=== PATIENT | female | born 1990 | race Native Hawaiian/Other Pacific Islander ===

== ENCOUNTER 2019-03-06 15:53 | Inpatient (IN) ==
[2019-03-06] MEDS ORDERED: ONDANSETRON 4 MG/2 ML VIAL IVP ONE (16:00)
[2019-03-06] MEDS ORDERED: Sodium Chloride 0.9% 1,000 ML PRIMARY IV ONE ×3 (16:00→20:57)
[2019-03-06] MEDS ORDERED: cefTRIAXone Inj 2 GM in Sodium Chloride 0.9% 100 ML IV ONE (16:03)
[2019-03-06 16:24] LABS: BASOPHILS # (AUTO) 0.02 10*3/UL; BASOPHILS % (AUTO) 0.1 % (0-1); EOSINOPHILS # (AUTO) 0.01 10*3/UL; EOSINOPHILS % (AUTO) 0.1 % (0-8); Hematocrit [HCT] 37.1 % (37.0-47.0); Hemoglobin [HGB] 12.6 g/dL (12.0-16.0); LYMPHOCYTES # (AUTO) 0.86 10*3/uL; MEAN CORPUSCULAR VOLUME 83.4 FL (81-99); MEAN PLATELET VOLUME 9.7 FL (7.4-12.2); MONOCYTES # (AUTO) 1.31 10*3/UL (0.3-0.8); MONOCYTES % (AUTO) 8.5 % (5-15); NEUTROPHILS # (AUTO) 13.21 10*3/UL; NEUTROPHILS % (AUTO) 85.4 % (50-80); RED BLOOD COUNT 4.45 10^6/uL (4.20-5.40)
[2019-03-06 16:32] LABS: BLOOD UREA NITROGEN 12 mg/dL (7-22); SERUM ALBUMIN 4.2 g/dL (3.5-4.8)
[2019-03-06 16:37] LABS: PLATELET MORPHOLOGY COMMENT NORMAL MORPHOLOGY (NORM); RBC MORPHOLOGY COMMENT NORMAL MORPHOLOGY (NORM); WBC MORPHOLOGY COMMENT NORMAL MORPHOLOGY (NORM)
[2019-03-06] MEDS ORDERED: ACETAMINOPHEN 500 MG TABLET PO ONE (18:03)
[2019-03-06 18:30] LABS: BILIRUBIN,URINE NEGATIVE (NEG); CLARITY,URINE CLEAR (CLEAR); COLOR,URINE YELLOW (Y); GLUCOSE, URINE (UA) NEGATIVE (NEG); OCCULT BLOOD,URINE MODERATE (NEG); PH,URINE 5.5 (5.0-8.5); PROTEIN,URINE 30 mg/dl (NEG); UROBILINOGEN,URINE 0.2 EU/dL (0.2)
[2019-03-06 18:37] LABS: BACTERIA,URINE FEW; SQUAMOUS EPITHELIAL CELL,UR RARE; URINE SAMPLE TYPE CLEAN CATCH URINE; WBC,URINE 50-60
[2019-03-06] MEDS ORDERED: CALCIUM CARBONATE 500 MG (TUMS) CHEWABLE TABLET PO PRN (20:57)
[2019-03-06] MEDS ORDERED: ACETAMINOPHEN 325 MG TABLET PO PRN (20:57)
[2019-03-06] MEDS ORDERED: HYDROmorphone 2 MG/1 ML IVP PRN (20:57)
[2019-03-06] MEDS ORDERED: LIDOCAINE W/ SODIUM BICARB 0.5 ML SYR SUBD PRN (20:57)
[2019-03-06] MEDS ORDERED: ONDANSETRON 4 MG/2 ML VIAL IVP PRN (20:57)
[2019-03-06] MEDS ORDERED: HYDROcodone-APAP 5 MG -325 MG TABLET PO PRN (20:57)
[2019-03-06] MEDS: Lactated Ringers 1,000 ML PRIMARY IV SCH (23:32)
[2019-03-07 05:36] LABS: BASOPHILS # (AUTO) 0.02 10*3/UL; BASOPHILS % (AUTO) 0.1 % (0-1); EOSINOPHILS # (AUTO) 0.04 10*3/UL; EOSINOPHILS % (AUTO) 0.3 % (0-8); Hematocrit [HCT] 33.1 % (37.0-47.0); Hemoglobin [HGB] 10.8 g/dL (12.0-16.0); LYMPHOCYTES # (AUTO) 1.51 10*3/uL; MEAN CORPUSCULAR HGB CONC 32.6 g/dL (33-37); MEAN CORPUSCULAR VOLUME 84.9 FL (81-99); MEAN PLATELET VOLUME 10.1 FL (7.4-12.2); MONOCYTES % (AUTO) 9.6 % (5-15); NEUTROPHILS # (AUTO) 11.52 10*3/UL; NEUTROPHILS % (AUTO) 79.3 % (50-80)
[2019-03-07 05:47] LABS: BLOOD UREA NITROGEN 8 mg/dL (7-22); BUN/CREATININE RATIO 8.88 (6-20)
[2019-03-07 05:50] LABS: PLATELET MORPHOLOGY COMMENT NORMAL MORPHOLOGY (NORM); RBC MORPHOLOGY COMMENT NORMAL MORPHOLOGY (NORM); WBC MORPHOLOGY COMMENT NORMAL MORPHOLOGY (NORM)
[2019-03-07] MEDS: Lactated Ringers 1,000 ML PRIMARY IV SCH ×3 (07:28→23:46)
[2019-03-07] MEDS: cefTRIAXone Inj 2 GM in Sodium Chloride 0.9% 100 ML IV SCH (16:24)
[2019-03-08] MEDS ORDERED: Influenza 19-20 Vaccine (6mo+) 60 MCG/0.5 ML SYRINGE IM ONE ×2 (05:12→07:38)
[2019-03-08] MEDS: Influenza 19-20 Vaccine (6mo+) 60 MCG/0.5 ML SYRINGE IM ONE ×2 (05:21→07:43)
[2019-03-08] MEDS: Lactated Ringers 1,000 ML PRIMARY IV SCH (07:39)
[2019-03-08 15:14] VITALS: O2SAT 99
[2019-03-08 16:23] VITALS: BP 126/86; RESP 20; TEMP 98.4
[2019-03-08] MEDS: cefTRIAXone Inj 2 GM in Sodium Chloride 0.9% 100 ML IV SCH (16:25)
== END 2019-03-08 17:54 | disposition home or self-care (01) | DRG 689 ==
LOC: ER 15:53 → MED/SURG 20:47
PROVIDERS: ADMIT Family Medicine; ATTEND Family Medicine